=== PATIENT | female | born 1970 | race Two or more races ===

== ENCOUNTER 2018-04-05 20:41 | Emergency (ER) | payer MEDICAID, OTHER ==
[~2018-04-05] VITALS: Ht 167.6 cm; Wt 76.2 kg
[2018-04-05 21:56] LABS: Basophils # (auto) 0 uL; Basophils % (auto) 0.2 % (0.0-2.0); Eosinophils # (auto) 0.1 uL; Eosinophils % (auto) 1.5 % (0.0-7.0); Hemoglobin 14.6 g/dL (12.2-16.2); Lymphocytes # (auto) 2.2 uL; Lymphocytes % (auto) 30.6 % (10.0-50.0); Mean Corpuscular Hemoglobin 29.5 pg (28.0-32.0); Mean Corpuscular Hgb Conc. 33.3 g/dL (32.0-36.0); Mean Corpuscular Volume 88.8 fL (80.0-100.0); Monocytes # (auto) 0.5 uL; Monocytes % (auto) 6.4 % (0.0-12.0); Neutrophils # (auto) 4.3 uL; Neutrophils % (auto) 61.3 % (37.0-80.0); Nucleated Red Blood Cells % 0.1 %; Platelet Count (auto) 230 10^3/uL (140-450); Red Blood Cells 4.96 10^6/uL (4.0-5.20); Red Cell Distribution Width 12.9 % (11.8-14.3); White Blood Cell 7.1 10^3/uL (4.4-10.8)
[2018-04-05 22:10] LABS: Albumin 3.5 g/dL (3.4-5.0); Calcium 8.4 mg/dL (8.5-10.1); Potassium 4.1 mmol/L (3.5-5.1)
[2018-04-05 22:13] LABS: Bilirubin, Total 0.4 mg/dL (0.2-1.0); Total Protein 7.3 g/dL (6.4-8.2)
[2018-04-05] MEDS ORDERED: InsuLIN REG 1unit/0.01ml Soln (100units/ml) IV ONE (23:15)
[2018-04-05] MEDS ORDERED: SODIUM CHLORIDE 0.9% 2,000 ML IV ONE (23:15)
[2018-04-06] MEDS ORDERED: POTASSIUM CHL 20 Meq TABLET PO ONE (00:15)
[2018-04-06] MEDS ORDERED: FUROSEMIDE 40 MG/4 ML VIAL IV ONE (00:15)
[2018-04-06 01:00] VITALS: BP 140/74
== END 2018-04-06 02:16 | disposition home or self-care (01) ==
LOC: ER 20:44
DX: M79.662 Pain in left lower leg (principal); M79.661 Pain in right lower leg; E11.65 Type 2 diabetes mellitus with hyperglycemia; E07.9 Disorder of thyroid, unspecified
CPT/HCPCS: 36415; 80053; 82962; 85025; 85379; 93970; 96361; 96374; 96375; 99284; J1815; J1940; J7030

== ENCOUNTER 2018-05-05 05:42 | Inpatient (IN) | payer OTHER ==
[~2018-05-05] VITALS: Ht 167.6 cm; Wt 88.7 kg
[2018-05-05] MEDS ORDERED: SODIUM CHLORIDE 0.9% 1,000 ML IV ONE (05:58)
[2018-05-05] MEDS ORDERED: SODIUM CHLORIDE 0.9% 1,000 ML IVB ONE (05:58)
[2018-05-05] MEDS ORDERED: ONDANSETRON HCL 4 MG/2 ML VIAL IV ONE (06:00)
[2018-05-05] MEDS ORDERED: MORPHINE SULFATE 4 MG/ML SYR/VIAL IV ONE (06:00)
[2018-05-05 07:16] LABS: Hemoglobin 12.6 g/dL (12.2-16.2); Mean Corpuscular Hemoglobin 28.8 pg (28.0-32.0); Mean Corpuscular Hgb Conc. 33.1 g/dL (32.0-36.0); Platelet Count (auto) 222 10^3/uL (140-450); Red Blood Cells 4.37 10^6/uL (4.0-5.20); Red Cell Distribution Width 12.2 % (11.8-14.3); White Blood Cell 20.7 10^3/uL (4.4-10.8)
[2018-05-05 07:31] LABS: Albumin 2.8 g/dL (3.4-5.0); BUN/Creatinine Ratio 15.7; Potassium 3.8 mmol/L (3.5-5.1)
[2018-05-05 07:33] LABS: Bilirubin, Total 1.1 mg/dL (0.2-1.0); Total Protein 6.5 g/dL (6.4-8.2)
[2018-05-05 07:38] LABS: Partial Thromboplastin Time 25.4 sec (23.78-33.04); Prothrombin Time 10.7 sec (9.27-12.13)
[2018-05-05 07:58] LABS: Basophils % (manual) 0 (0.0-2.0); Blast Cells 0; Eosinophils % (manual) 0 (0-7); Metamyelocytes % 0; Myelocytes % 0; Promyelocytes % 0; Reactive Lymphocytes 0
[2018-05-05 08:20] LABS: Urine Bacteria FEW /hpf (None Seen); Urine Blood Negative /uL (Negative); Urine Specific Gravity 1.034 (1.001-1.035); Urine WBC 43 /hpf (0 - 5)
[2018-05-05 08:25] LABS: Band Neutrophils % (manual) 2; Lymphocytes % (manual) 1 (10.0-50.0); Monocytes % (manual) 1 (0-12)
[2018-05-05] MEDS ORDERED: InsuLIN REG 1unit/0.01ml Soln (100units/ml) IV ONE ×2 (09:30→09:45)
[2018-05-05] MEDS ORDERED: PIPERACILLIN-TAZOB 3.375GM 100 ML IV ONE (09:30)
[2018-05-05] MEDS ORDERED: KETOROLAC TROMETH 30 MG/ML 1ML VIAL IV ONE (11:15)
[2018-05-05] MEDS ORDERED: SODIUM CHLORIDE 0.9% 1,000 ML IV SCH (13:28)
[2018-05-05] MEDS ORDERED: MORPHINE SULF INJ 2 MG/ML SYRINGE 1ML IV PRN ×2 (13:30→17:30)
[2018-05-05] MEDS ORDERED: NITROGLYCERIN 0.4 MG SL TAB SL PRN ×2 (13:30→17:30)
[2018-05-05] MEDS ORDERED: DEXTROSE (50%) 50ML SYRG IV PRN ×2 (13:30→17:15)
[2018-05-05] MEDS ORDERED: HYDROcodone-ACET 5/325MG TAB PO PRN (13:30)
[2018-05-05] MEDS ORDERED: ACETAMINOPHEN 500 MG TAB PO PRN (13:30)
[2018-05-05] MEDS ORDERED: cefTRIAXone 1GM/50ML D5W 50 ML IV ONE (13:45)
[2018-05-05] MEDS: ONDANSETRON HCL 4 MG/2 ML VIAL IV PRN ×2 (15:03→19:45)
[2018-05-05] MEDS ORDERED: InsuLIN REG 1unit/0.01ml Soln (100units/ml) SC SCH (16:00)
[2018-05-05] MEDS ORDERED: ACCU-CHEK COMFORT CURVE STRIP VI SCH (16:00)
[2018-05-05] MEDS: IPRATROPIUM BROM 0.5 MG/2.5ML INH SOL NEB SCH ×3 (16:19→22:32)
[2018-05-05] MEDS ORDERED: SODIUM CHLORIDE 0.9% 2,000 ML IV ONE (17:00)
[2018-05-05] MEDS: SODIUM CHLORIDE 0.9% 1,000 ML IV SCH ×2 (17:21→23:03)
[2018-05-05] MEDS ORDERED: LEVOFLOXACIN 750MG 150 ML IV SCH (18:00)
--- NOTE | 2018-05-05 18:45 | NUR ---
Report called from ER Report called from ER at this time. Will bring patient up shortly.
[2018-05-05] MEDS: ALBUTEROL SULF 2.5 MG/0.5ML(0.5%) NEB SOLN NEB PRN (19:02)
--- NOTE | 2018-05-05 19:10 | NUR ---
Closing Note Report given. Will endorse care to the evening or night nurse supervisor RN.
[2018-05-05] MEDS: MORPHINE SULF INJ 2 MG/ML SYRINGE 1ML IV PRN (19:45)
--- NOTE | 2018-05-05 20:30 | NUR ---
Telemetry admit from ER JACKIE STEIN admitted to Telemetry unit after SBAR received. Patient oriented to Pauline Celestin, primary RN, unit, room, bed, and unit policies regarding patient care and visiting hours. Patient now on continuous telemetry monitoring, tele box # [[id number]] and telemetry reading on arrival to unit is [ST 121]. Patient weighed by bedscale and encouraged to call if they need something. All questions and concerns addressed, patient verbalized understanding. Note: PATIENT COUGHING WITH NO PRODUCTIVE, AND VOMITING AFTER COUGH. ER MEDICATED PATIENT ZOFRAN AND MORPHINE PRIOR TO TRANSFER PATIENT TO FLOOR, WILL CONTINUE TO MONITOR.
[2018-05-05 21:04] VITALS: BP 105/64
[2018-05-05 21:40] VITALS: BP 105/64
[2018-05-05 22:00] VITALS: BP 105/64
[2018-05-05] MEDS ORDERED: INSULIN LANTUS (GLARGINE) 1 /0.01ml (100units/ml) SC SCH (22:00)
[2018-05-05] MEDS: InsuLIN REG 1unit/0.01ml Soln (100units/ml) SC SCH (22:21)
[2018-05-05] MEDS: ACCU-CHEK COMFORT CURVE STRIP VI SCH (22:21)
--- NOTE | 2018-05-05 22:22 | NUR ---
ACCU-CHECK, BS 308. INSULIN AND LANTUS GIVEN ORDERED. CONTINUE TO MONITOR.
--- NOTE | 2018-05-05 23:30 | NUR ---
REASSESSED TEMP 99.4. PATIENT STATED COMFORTABLE RIGHT NOW. CONTINUE TO MONITOR.
[2018-05-06] VITALS (7 sets, daily range): BP systolic 76–119; BP diastolic 46–70
[2018-05-06] MEDS: MORPHINE SULF INJ 2 MG/ML SYRINGE 1ML IV PRN ×3 (03:39→16:54)
[2018-05-06] MEDS: ONDANSETRON HCL 4 MG/2 ML VIAL IV PRN ×3 (03:39→23:41)
--- NOTE | 2018-05-06 03:39 | NUR ---
PATIENT WOKE UP AND C/O PAIN @ 10/10 AND NAUSEA, MEDICATED PATIENT ORDERED. CONTINUE TO MONITOR.
[2018-05-06] MEDS: ACETAMINOPHEN 325 MG TAB PO PRN ×2 (05:13→16:50)
--- NOTE | 2018-05-06 05:14 | NUR ---
TEMP 101.5, MEDICATED PATIENT ORDERED. CONTINUE TO MONITOR.
[2018-05-06 05:29] LABS: Basophils # (auto) 0 uL; Basophils % (auto) 0.2 % (0.0-2.0); Eosinophils # (auto) 0 uL; Eosinophils % (auto) 0.1 % (0.0-7.0); Hematocrit 35.7 % (36.0-46.0); Lymphocytes # (auto) 0.3 uL; Lymphocytes % (auto) 1.8 % (10.0-50.0); Mean Corpuscular Hemoglobin 29.4 pg (28.0-32.0); Mean Corpuscular Hgb Conc. 33.8 g/dL (32.0-36.0); Monocytes # (auto) 0.6 uL; Monocytes % (auto) 3.3 % (0.0-12.0); Neutrophils # (auto) 16.7 uL; Neutrophils % (auto) 94.6 % (37.0-80.0); Platelet Count (auto) 178 10^3/uL (140-450); Red Cell Distribution Width 12.8 % (11.8-14.3); White Blood Cell 17.7 10^3/uL (4.4-10.8)
[2018-05-06 06:00] LABS: Potassium 3.8 mmol/L (3.5-5.1)
[2018-05-06 06:06] LABS: BUN/Creatinine Ratio 20.7; Magnesium 1.4 mg/dL (1.6-2.6); Phosphorus 2.5 mg/dL (2.5-4.90)
--- NOTE | 2018-05-06 06:10 | NUR ---
REASSESSED TEMP 99.2. CONTINUE TO MONITOR.
[2018-05-06] MEDS: ACCU-CHEK COMFORT CURVE STRIP VI SCH ×4 (06:36→22:00)
[2018-05-06] MEDS: InsuLIN REG 1unit/0.01ml Soln (100units/ml) SC SCH ×4 (06:37→22:38)
--- NOTE | 2018-05-06 06:37 | NUR ---
ACCU-CHECK, BS 220. INSULIN GIVEN ORDERED. CONTINUE TO MONITOR.
[2018-05-06] MEDS: IPRATROPIUM BROM 0.5 MG/2.5ML INH SOL NEB SCH ×2 (06:56→10:20)
[2018-05-06] MEDS ORDERED: SODIUM CHLORIDE 0.9% 1,000 ML IV ONE (08:45)
[2018-05-06] MEDS ORDERED: ALBUMIN 25% 100 ML IV ONE (08:45)
--- NOTE | 2018-05-06 08:55 | NUR ---
RECEIVED PHONE CALL FROM DR. DAVIDSON. NEW ORDERS OBTAINED: ALBUMIN 25% IVPB ONCE, MEROPENEM 1G IVPB Q8, DISCONTINUE ROCEPHIN, CBC, CMP TOMORROW AM, LANTUS 10UNITS BID. ORDER READ BACK AND VERIFIED WILL CARRY OUT ORDER.
[2018-05-06] MEDS ORDERED: cefTRIAXone 1GM/50ML D5W 50 ML IV SCH (09:00)
[2018-05-06] MEDS: FAMOTIDINE 20 MG TAB PO SCH (09:51)
[2018-05-06] MEDS: INSULIN LANTUS (GLARGINE) 1 /0.01ml (100units/ml) SC SCH ×2 (09:54→22:37)
[2018-05-06] MEDS: SODIUM CHLORIDE 0.9% 1,000 ML IV SCH ×2 (09:57→17:21)
[2018-05-06] MEDS ORDERED: INSULIN LANTUS (GLARGINE) 1 /0.01ml (100units/ml) SC SCH (10:00)
[2018-05-06] MEDS ORDERED: LEVOFLOXACIN 750MG 150 ML IV SCH (10:00)
--- NOTE | 2018-05-06 10:38 | NUR ---
NOTIFIED DR. TRIVEDI PT'S BLOOD CULTURE + FOR GRAM (+) COCCI IN CLUSTERS. NEW ORDERS OBTAINED VANCO PER PHARMACY. AND LACTIC ACID. WILL CARRY OUT ORDERS.
[2018-05-06] MEDS ORDERED: VANCOMYCIN PER PHARMACY 0 MG IV SCH (10:45)
[2018-05-06] MEDS: VANCOMYCIN 1GM/250ML 250 ML IV SCH (12:04)
[2018-05-06] MEDS: MEROPENEM 1GM IVPB 100 ML IV SCH ×2 (14:57→22:35)
--- NOTE | 2018-05-06 15:01 | NUR ---
NOTIFIED DR. DAVIDSON PT DOES NOT NEED ATROVENT MEDNEB SAROJ Q4 HWA PER RT. STATED OK TO CHANGE TO PRN.
--- NOTE | 2018-05-06 16:50 | NUR ---
PT HAS TEMP 101.0. TYLENOL 650MG PO PRN GIVEN ORDER. COOLING MEASURE INITIATED. WILL RECHECK TEMP.
[2018-05-06] MEDS ORDERED: THROAT LOZENGES(CEPASTAT) MT PRN (17:00)
[2018-05-06] MEDS: LEVOFLOXACIN 750MG 150 ML IV SCH (17:22)
--- NOTE | 2018-05-06 17:45 | NUR ---
TEMP 100.2. WILL CONTINUE TO MONITOR.
--- NOTE | 2018-05-06 19:15 | NUR ---
Opening Shift Note Received report from osman Yin RN. Assumed care of patient, awake and alert. No S/S of distress/SOB or pain. Instructed on POC and to call for assist PRN, will continue to monitor for changes Q1hr and PRN. Addendum: 05/07/18 at 0119 by TOÑO MCLAIN RN RN Received report from Aneesh whaley
--- NOTE | 2018-05-06 19:33 | NUR ---
CARE ENDORSED TO TOÑO KHAN.
--- NOTE | 2018-05-06 20:10 | NUR ---
Respiratory note: PT ASSESSED FOR PRN MEDNEB TX. NO TX INDICATED AT THIS TIME. SPO2 95% ON RA HR 92 RR 18 B/S DIMINISHED. PT AWARE TO CALL RN AND HAVE RT PAGED IF THEY BECOME SOB.
--- NOTE | 2018-05-06 23:40 | NUR ---
GIVEN ZOFRAN FOR NAUSEA. PATIENT HAS BEEN NAUSEATED, SPITTING CLEAR WATERY SALIVA. WILL MONITOR
[2018-05-07] VITALS (7 sets, daily range): BP systolic 98–129; BP diastolic 52–75
[2018-05-07] MEDS: VANCOMYCIN 1GM/250ML 250 ML IV SCH ×2 (00:14→11:55)
[2018-05-07] MEDS: MORPHINE SULF INJ 2 MG/ML SYRINGE 1ML IV PRN ×3 (00:49→17:16)
[2018-05-07] MEDS: SODIUM CHLORIDE 0.9% 1,000 ML IV SCH ×3 (03:44→17:28)
--- NOTE | 2018-05-07 05:30 | NUR ---
IV removal IV DC'd with sterile technique, catheter fully intact. Pressure dressing applied to site. Patient tolerated procedure well. IV insertion IV access obtained, via clean sterile technique by inserting 22 gauge catheter at left hand after first attempt. IV secured properly. No trauma to site. Patient tolerated procedure well.
[2018-05-07] MEDS: MEROPENEM 1GM IVPB 100 ML IV SCH ×3 (05:51→22:40)
--- NOTE | 2018-05-07 07:00 | NUR ---
CARE ENDORSED TO MOE FREY RN.
[2018-05-07] MEDS: ACCU-CHEK COMFORT CURVE STRIP VI SCH ×4 (07:19→22:00)
[2018-05-07] MEDS: InsuLIN REG 1unit/0.01ml Soln (100units/ml) SC SCH ×4 (07:20→22:39)
--- NOTE | 2018-05-07 07:25 | NUR ---
Opening Shift Note Assumed care of patient, currently sleeping, easily awakened via verbal and tactile stimuli. No S/S of distress/SOB or pain reported at this time. Instructed on POC and to call for assist PRN, call light within and able to verbalize how to use call light, 2 side rials up for safety, IV patent and benign to left hand, no swelling or redness noted, will continue to monitor for changes Q1hr and PRN.
[2018-05-07 08:15] LABS: Basophils # (auto) 0 uL; Basophils % (auto) 0.2 % (0.0-2.0); Eosinophils # (auto) 0.1 uL; Eosinophils % (auto) 0.6 % (0.0-7.0); Hematocrit 31.5 % (36.0-46.0); Hemoglobin 10.5 g/dL (12.2-16.2); Lymphocytes # (auto) 0.6 uL; Lymphocytes % (auto) 4.8 % (10.0-50.0); Mean Corpuscular Hgb Conc. 33.3 g/dL (32.0-36.0); Monocytes # (auto) 0.9 uL; Monocytes % (auto) 6.7 % (0.0-12.0); Neutrophils # (auto) 11.2 uL; Neutrophils % (auto) 87.7 % (37.0-80.0); Platelet Count (auto) 122 10^3/uL (140-450); Red Blood Cells 3.62 10^6/uL (4.0-5.20); Red Cell Distribution Width 12.7 % (11.8-14.3); White Blood Cell 12.7 10^3/uL (4.4-10.8)
[2018-05-07 08:36] LABS: Albumin 2.3 g/dL (3.4-5.0); Calcium 6.9 mg/dL (8.5-10.1); Potassium 3.6 mmol/L (3.5-5.1)
[2018-05-07 08:40] LABS: BUN/Creatinine Ratio 26.7; Bilirubin, Total 0.6 mg/dL (0.2-1.0)
--- NOTE | 2018-05-07 09:27 | NUR ---
Respiratory note: ASSESSED PATIENT FOR PRN TX. PATIENT IS AWAKE AND ALERT, NO RESPIRATORY DISTRESS NOTED OR STATED. PATIENT IS CURRENTLY ON ROOM AIR,SPO2 97%, HR 97, RR 18, AND BREATH SOUNDS ARE CLEAR. PATIENT WAS INFORMED TO CALL RT IF BREATHING TX IS NEEDED. BILL ROSA AWARE AND NOTIFIED.
[2018-05-07] MEDS: FAMOTIDINE 20 MG TAB PO SCH (10:11)
[2018-05-07] MEDS: ONDANSETRON HCL 4 MG/2 ML VIAL IV PRN ×2 (10:12→17:16)
--- NOTE | 2018-05-07 10:30 | NUR ---
ACTIVITY ASSISTED PT TO BATHROOM, STANDBY ASSIST, GAIT STEADY, CONT CARE
[2018-05-07] MEDS: INSULIN LANTUS (GLARGINE) 1 /0.01ml (100units/ml) SC SCH ×2 (11:57→21:46)
[2018-05-07] MEDS ORDERED: IPRATROPIUM BROM 0.5 MG/2.5ML INH SOL NEB PRN (14:00)
--- NOTE | 2018-05-07 15:40 | NUR ---
PT CARE ENDORSED TO TOÑO KHAN PT CURRENTLY SLEEPING, BREATHING EVEN AND UNLABORED, EASILY AWAKENED VIA VERBAL AND TACTILE STIMULI, NO DISTRESS NOTED, CALL LIGHT WITHIN REACH
--- NOTE | 2018-05-07 16:00 | NUR ---
Patient care endorsed from Annamaria KHAN. Patient out of bed sitting up in chair. No s/s of distress noted, no current c/o any discomfort. Call light within reach and will continue to monitor.
[2018-05-07] MEDS: LEVOFLOXACIN 750MG 150 ML IV SCH (17:17)
--- NOTE | 2018-05-07 19:11 | NUR ---
Patient care and report handed off to Kelli Overton RN.
--- NOTE | 2018-05-07 19:19 | NUR ---
Respiratory note: PT IS CURRENTLY ON ROOM AIR: HR 94, RR 16, SPO2 96% WITH DIMINSHED BS T/O. PT SHOWS NO S/S OF ANY RESPIRATORY DISTRESS. INFORMED PT IF SOB TO CONTACT RESPIRATORY FOR BREATHING TX. WILL CONTINUE TO MONITOR.
--- NOTE | 2018-05-07 19:30 | NUR ---
Opening Shift Note Received report from osman Preston RN. Assumed care of patient, awake and alert. Resting in bed, no S/S of distress/SOB or pain. Instructed on POC and to call for assist PRN, will continue to monitor for changes Q1hr and PRN. Given a pair of socks and blankets per patient's request.
[2018-05-08] MEDS: VANCOMYCIN 1GM/250ML 250 ML IV SCH ×2 (00:41→12:41)
[2018-05-08] MEDS: ALBUTEROL SULF 2.5 MG/0.5ML(0.5%) NEB SOLN NEB PRN (00:50)
[2018-05-08] MEDS: ONDANSETRON HCL 4 MG/2 ML VIAL IV PRN ×2 (01:26→09:16)
[2018-05-08] MEDS: MORPHINE SULF INJ 2 MG/ML SYRINGE 1ML IV PRN ×2 (01:27→09:16)
[2018-05-08 05:13] VITALS: BP 117/75
[2018-05-08 06:00] LABS: Basophils # (auto) 0 uL; Basophils % (auto) 0.2 % (0.0-2.0); Eosinophils # (auto) 0.1 uL; Eosinophils % (auto) 0.8 % (0.0-7.0); Hematocrit 31.8 % (36.0-46.0); Lymphocytes # (auto) 0.8 uL; Lymphocytes % (auto) 7.4 % (10.0-50.0); Mean Corpuscular Hemoglobin 29.6 pg (28.0-32.0); Mean Corpuscular Hgb Conc. 34.6 g/dL (32.0-36.0); Mean Corpuscular Volume 85.4 fL (80.0-100.0); Monocytes # (auto) 0.8 uL; Monocytes % (auto) 7.2 % (0.0-12.0); Neutrophils # (auto) 8.9 uL; Neutrophils % (auto) 84.4 % (37.0-80.0); Platelet Count (auto) 142 10^3/uL (140-450); Red Blood Cells 3.73 10^6/uL (4.0-5.20); Red Cell Distribution Width 12.7 % (11.8-14.3); White Blood Cell 10.5 10^3/uL (4.4-10.8)
[2018-05-08] MEDS: MEROPENEM 1GM IVPB 100 ML IV SCH ×2 (06:18→14:00)
[2018-05-08 06:20] LABS: Calcium 7.3 mg/dL (8.5-10.1); Potassium 3.3 mmol/L (3.5-5.1)
[2018-05-08] MEDS: SODIUM CHLORIDE 0.9% 1,000 ML IV SCH ×2 (06:20→09:15)
[2018-05-08 06:21] LABS: BUN/Creatinine Ratio 20.6
--- NOTE | 2018-05-08 07:00 | NUR ---
PATIENT IS ALERT AND AWAKE, NO DISTRESS NOTED. IV JUST GOT INFILTRATED, ENDORSED CARE TO MOE, DAY NURSE.
[2018-05-08] MEDS: ACCU-CHEK COMFORT CURVE STRIP VI SCH ×2 (07:09→11:33)
[2018-05-08] MEDS: InsuLIN REG 1unit/0.01ml Soln (100units/ml) SC SCH ×2 (07:09→11:30)
--- NOTE | 2018-05-08 07:30 | NUR ---
Opening Shift Note Assumed care of patient, currently sleeping, easily awakened via verbal and tactile stimuli. No S/S of distress/SOB reported at this time, c/o abd pain 07/17, currently no IV access, attempted x2 unsuccessful venipuncture, charge nurse will attempt. Instructed on POC and to call for assist PRN, call light within and able to verbalize how to use call light, 2 side rials up for safety, will continue to monitor for changes Q1hr and PRN.
[2018-05-08 08:00] VITALS: BP 120/76
[2018-05-08 09:00] VITALS: BP 120/76
--- NOTE | 2018-05-08 09:05 | NUR ---
Midline Placement Patient educated on need for midline placement. All risks and benefits explained and all questions and concerns addresses prior to procedure. 18g/10cm midline inserted via Right Basilic vein using Ultrasound. Sterile technique utilized. Blood return obtained from single lumen and flushed easily with NS using proper technique. Midline secured with saline lock; biodisc and occlusive dressing applied. Primary RN notified. Midline lot #[id number].
[2018-05-08] MEDS: FAMOTIDINE 20 MG TAB PO SCH (09:15)
[2018-05-08] MEDS: INSULIN LANTUS (GLARGINE) 1 /0.01ml (100units/ml) SC SCH (10:00)
--- NOTE | 2018-05-08 11:00 | NUR ---
LINEN CHANGE PT GIVEN COMPETE LINEN CHANGE.
--- NOTE | 2018-05-08 11:14 | NUR ---
RT NOTE: PT DECLINED NEED FOR PRN TX AT THIS TIME. NO SIGNS OF RESPIRATORY DISTRESS NOTED. LUNG SOUNDS CLEAR T/O. ON RA SPO2 97 HR 91 RR 16. PT AWARE THAT SHE CAN PAGE FOR IF NEED FOR TX ARISES. WILL CONTINUE TO MONITOR.
[2018-05-08] MEDS ORDERED: POTASSIUM CHL 20 Meq TABLET PO ONE (11:45)
--- NOTE | 2018-05-08 11:48 | NUR ---
MD DR JJ AT BEDSIDE DISCUSSING POC WITH PT, POSSIBLE DC FOR TODAY, PT VERBALIZED UNDERSTANDING, CONT CARE
[2018-05-08] MEDS ORDERED: IPR002IS NEB (11:53)
[2018-05-08] MEDS ORDERED: FLUT250M2 INH (11:53)
[2018-05-08] MEDS ORDERED: SULF400T11 PO (11:53)
[2018-05-08] MEDS ORDERED: MISC4CAP PO (11:53)
[2018-05-08] MEDS ORDERED: INSLANTI SC (11:53)
[2018-05-08] MEDS ORDERED: ALB5IS NEB (11:53)
[2018-05-08 12:59] VITALS: BP 122/73
--- NOTE | 2018-05-08 14:32 | NUR ---
PT CARE ENDORSED TO MERI KHAN
--- NOTE | 2018-05-08 14:33 | NUR ---
Patient care endorsed from BILL Yin.
--- NOTE | 2018-05-08 16:30 | NUR ---
Discharge from Tele Discharge instructions given as ordered. Encourage to follow up with PMD as instructed. All questions and concerns addressed. Patient verbalized understanding. IV removed with catheter intact, pressure dressing applied. Telemetry unit returned to ICU. Patient taken to vehicle via wheelchair with all personal belongings, accompanied by staff and family member. No distress noted at time of departure.
== END 2018-05-08 16:30 | disposition home health service (06) | DRG 872 ==
LOC: EDBD 05:42 → ER 05:42 → TELE 13:32 → TELE-WESTW 20:00
PROVIDERS: ADMIT Nurse Practitioner Acute Care; ATTEND Internal Medicine
DX: A41.9 Sepsis, unspecified organism (principal); E44.0 Moderate protein-calorie malnutrition; N39.0 Urinary tract infection, site not specified; E11.65 Type 2 diabetes mellitus with hyperglycemia; N20.0 Calculus of kidney; E86.0 Dehydration; J44.9 Chronic obstructive pulmonary disease, unspecified; B96.89 Other specified bacterial agents as the cause of diseases classified elsewhere; D64.9 Anemia, unspecified; Z79.4 Long term (current) use of insulin; Z82.49 Family history of ischemic heart disease and other diseases of the circulatory system; Z83.3 Family history of diabetes mellitus; Z88.8 Allergy status to other drugs, medicaments and biological substances
CPT/HCPCS: 36415; 71045; 74176; 80048; 80053; 80061; 80202; 81001; 82150; 82962; 83036; 83605; 83690; 83735; 84100; 84443; 84702; 85007; 85025; 85027; 85610; 85730; 87040; 87077; 87086; 87186; 94640; 96361; 96365; 96375; A6257; G0378; J0696; J1815; J1885; J1956; J2185; J2405; J2543; P9047